=== PATIENT | male | born 1980 | race Hispanic/Latino ===

== ENCOUNTER → 2020-12-21 | Outpatient (CLI) | payer BC ==
[~2020-12-21] MED LIST: FLUC200T8 PO; SULF1TAB42 PO
== END | disposition home or self-care (01) ==
LOC: RAH 09:02
PROVIDERS: ATTEND Surgery
DX: N39.0 Urinary tract infection, site not specified (principal); D38.1 Neoplasm of uncertain behavior of trachea, bronchus and lung; N32.1 Vesicointestinal fistula
CPT/HCPCS: 74430; Q9958